=== PATIENT | female | born 1950 | race Caucasian/White ===

== ENCOUNTER 2023-08-17 06:52 | Day surgery (SDC) | payer OTHER, MEDICAID ==
[~2023-08-17] VITALS: Ht 154.9 cm; Wt 73.0 kg
[2023-08-17] VITALS (8 sets, daily range): BP systolic 118–152; BP diastolic 58–71; PULSE 47–54; RESP 12–15; TEMP 97.6; O2SAT 97–100
[~2023-08-17 06:52] MED LIST: ACET-6 PO; ACLI400A5 IN; ASPI-543 PO; ATOR40TA52 PO; CLOP75TA70 PO; DOCU-94 PO; EZET10TA22 PO; FAMO-12 PO; IBUP-1454 PO; KRIL1CAP14 PO; LANS30CA57 PO; METO25TA93 PO; MONT-8 PO
[2023-08-17] MEDS ORDERED: ANGIOMAX 250 MG VIAL IV ONE (08:47)
[2023-08-17] MEDS ORDERED: HEPARIN SODIUM (PORCINE) 5000 UNITS/ML 1ML VIAL ONE (08:47)
[2023-08-17] MEDS ORDERED: VERAPAMIL 2.5MG/ML INJ 2ML VIAL IV ONE (08:48)
[2023-08-17] MEDS ORDERED: fentaNYL CITRATE 100 MCG/2 ML VL ONE (08:48)
[2023-08-17] MEDS ORDERED: SODIUM CHL 0.9% 50 ML ONE (08:48)
[2023-08-17] MEDS ORDERED: MIDAZOLAM HCL 2MG/2ML 2ml VIAL (1mg/ml) ONE (08:48)
[2023-08-17] MEDS ORDERED: LIDOCAINE 2%HCL (LOCAL ANESTH.) INJ 20ML MDV ONE (08:51)
[2023-08-17] MEDS ORDERED: IODIXANOL 320MG/ML 100ML BTL IV ONE ×2 (08:51→09:49)
[2023-08-17] MEDS ORDERED: ATROPINE SULF 1 MG/10ml SYR ONE (09:37)
[2023-08-17] MEDS ORDERED: ASPirin 81 mg TAB ONE (10:06)
[2023-08-17] MEDS ORDERED: TICAGRELOR 90 MG TAB ONE (10:07)
== END 2023-08-17 12:45 | disposition home or self-care (01) ==
LOC: CATH 06:52
PROVIDERS: ATTEND Internal Medicine Cardiovascular Disease
DX: R94.39 Abnormal result of other cardiovascular function study (principal); I25.10 Atherosclerotic heart disease of native coronary artery without angina pectoris; R06.09 Other forms of dyspnea; K21.9 Gastro-esophageal reflux disease without esophagitis; J43.9 Emphysema, unspecified; E78.5 Hyperlipidemia, unspecified; Z79.899 Other long term (current) drug therapy; Z85.42 Personal history of malignant neoplasm of other parts of uterus; Z98.890 Other specified postprocedural states
CPT/HCPCS: 93458; C1725; C1769; C1874; C1887; C1894; C9600; J0583; J1644; J2250; J3010; Q9967; 99152